=== PATIENT | male | born 1990 | race Caucasian/White ===

== ENCOUNTER 2020-03-21 12:01 | Emergency (ER) | payer OTHER, SELFPAY ==
--- NOTE | ~2020-03-21 | XR_ITS ---
XR abdomen/kub 1V DATE: 03/21/2020 13:49 INDICATION: Low back pain. Hematuria. TECHNIQUE: AP projection, 2 views COMPARISON: None FINDINGS: There is a very prominent amount of fecal material within the colon, especially the sigmoid and right colon. There are gas distended small bowel segments overlying the mid abdomen. The psoas shadows are intact. No visceromegaly or significant abnormal calcification is detected. Included skeletal structures are unremarkable. IMPRESSION: Very prominent amount of fecal material within the colon Multiple gas distended small bowel segments, possibly secondary to adynamic ileus, less likely obstru ction Reviewed, dictated and finalized at [facility] Reviewed, dictated and finalized at [facility] IMPRESSION: Very prominent amount of fecal material within the colon Multiple gas distended small bowel segments, possibly secondary to adynamic ile us, less likely obstruction
--- NOTE | 2020-03-21 12:04 | ED.GENADULT ---
HPI - General Adult General Chief complaint: Fever Stated complaint: Kidney Pain, Fever Time Seen by Provider: 03/21/20 12:04 Source: patient Mode of arrival: ambulatory Limitations: no limitations History of Present Illness HPI narrative: 29-year-old male patient presents to the [facility] with complaints of a fever, body aches and a sore throat that started yesterday. Patient denies taking anything for his symptoms since they have started. Patient states he also has had some low back pain feels like his kidneys are painful. Patient states he did have a little bit of burning with urination this morning when he urinated. Patient denies any nausea, vomiting or diarrhea. Patient denies getting a flu shot this year. Denies any chest pain, shortness of breath or coughing. Related Data Allergies Allergy/AdvReac Type Severity Reaction Status Date / Time No Known Allergies Allergy Verified 03/21/20 12:02 Review of Systems Review of Systems: Narrative: CONSTITUTIONAL: Positive fever, body aches and chills, or sweats. EYES: Denies visual changes, redness, or discharge. ENT: Denies rhinorrhea, congestion, positive sore throat, denies otalgia. CARDIOVASCULAR: Denies chest pain, palpitations, or edema. RESPIRATORY: Denies cough or dyspnea. GASTROINTESTINAL: Denies abdominal pain, nausea, vomiting, or diarrhea. GENITOURINARY: Denies dysuria or hematuria. SKIN: Denies rash or itching. MUSCULOSKELETAL: Denies back pain, joint pain, or myalgia. NEUROLOGIC: Denies headache, numbness, or weakness. PSYCHIATRIC: Denies anxiety or depression. [facility] Social History Social History (Updated 03/21/20 @ 12:52 by TAMIKA Silva) Smoking status: Current every day smoker Gender identity (if verbalized by the patient): Male Comments At the time of my signature I agree with nursing past medical history, surgical, social, and family history. There is no relevant family history pertinent to the presenting complaint. Exam Narrative: Exam Narrative: GENERAL: ill-appearing, well-nourished, and in no acute distress. HEAD: Normocephalic, atraumatic. EYES: PERRLA and EOMI. ENT: Nares with erythema and edema noted bilaterally, no rhinorrhea or epistaxis. Mucous membranes moist. Posterior pharynx with erythema and 2+ tonsil enlargement. No exudates or lesions present. Bilateral TMs are clear with no erythema or foreign bodies to the canal. NECK: Supple. No lymphadenopathy CHEST: Clear to auscultation. No respiratory distress. Patient able talk in clear complete sentences. HEART: Regular rate and rhythm. No murmur heard. Normal peripheral pulses. ABDOMEN: Soft, nontender, nondistended, normal active bowel sounds. EXTREMITIES: Normal range of motion. No edema. SKIN: Warm, dry, no rash. NEURO: No focal deficits. Alert and oriented x3. Course Reevaluation(s) Reevaluation #1: Reevaluated patient and discussed with him that there was some urine found in his urine dip. Discussed with him that since he is having some back pain along with fevers body aches chills I would like to do a KUB to rule out any kind of kidney stone. I will reassess him once this has resulted. Date: 03/21/20 Time: 13:26 Reevaluation #2: Reevaluated patient's KUB after had resulted. There is concerns due to the impression of the radiologist stating that there was multiple gas distended small bowel segments, possibly secondary to adynamic ileus, less likely obstruction. A call was placed to Dr. Montalvo and spoke with his nurse and relayed a message to him that I was wanting to get his advice if I should send this patient to the ER for further evaluation especially since the patient is febrile and low back pain but no abdominal pain or if I can possibly send the patient home with recommendations of stool softener and possibly a bacteria for UTI. Awaiting to hear back from Dr. Montalvo At this time. Date: 03/21/20 Time: 14:14 Reevaluation #3: Bacon back from Dr. Zeus lunsford as nurse.
[2020-03-21 12:05] VITALS: BP 120/84; PULSE 122; RESP 18; TEMP 38.9; O2SAT 96
[2020-03-21 12:44] VITALS: TEMP 38.9
[2020-03-21] MEDS: ACETAMINOPHEN 500 MG TABLET 1000 MG PO (12:44)
[2020-03-21 13:20] VITALS: TEMP 37.9
[2020-03-21 13:34] VITALS: PULSE 113; RESP 18; TEMP 37.9; O2SAT 99
== END 2020-03-21 14:40 | disposition short-term general hospital (02) ==
PROVIDERS: Emergency Provider Nurse Practitioner Family
DX: Z20.828 Contact with and (suspected) exposure to other viral communicable diseases (principal); R31.9 Hematuria, unspecified; F17.200 Nicotine dependence, unspecified, uncomplicated
CPT/HCPCS: 74018; 81003; 87081; 87086; 87804; 87880; 99213; A9270; G0463

== ENCOUNTER 2022-07-30 11:58 | Emergency (ER) | payer BC, MEDICAID, SELFPAY ==
[2022-07-30 12:09] VITALS: BP 145/89; PULSE 92; RESP 16; TEMP 36; O2SAT 99
--- NOTE | 2022-07-30 12:44 | ED.GENADULT ---
HPI - General Adult General Chief complaint: Urogenital-Male Stated complaint: STD/Cough/Sinus Time Seen by Provider: 07/30/22 12:37 Source: patient Mode of arrival: ambulatory Limitations: no limitations History of Present Illness HPI narrative: Patient presents today complaining of 3 day history of nasal congestion, dry throat, cough. Denies fever, shortness of breath. No history of asthma or COPD. Reports sick contacts at work. Smokes 1 pack per day. He has tried no [id number] treatment prior to arrival. Patient also states he would like to be tested for sexually transmitted infections. Denies any known contacts. He is having no symptoms. Related Data Allergies Allergy/AdvReac Type Severity Reaction Status Date / Time No Known Allergies Allergy Verified 07/30/22 12:28 Review of Systems Review of Systems: CONSTITUTIONAL: Denies body aches, fever, chills, or sweats. EYES: Denies visual changes, redness, or discharge. ENT: Denies rhinorrhea, sore throat, or otalgia.+ congestion, dry throat CARDIOVASCULAR: Denies chest pain, palpitations, or edema. RESPIRATORY: Denies dyspnea.+ cough GASTROINTESTINAL: Denies abdominal pain, nausea, vomiting, or diarrhea. GENITOURINARY: Denies dysuria or hematuria. SKIN: Denies rash, itching, or wounds. MUSCULOSKELETAL: Denies back pain, joint pain, or myalgia. NEUROLOGIC: Denies headache, numbness, tingling, or weakness. PSYCH: Denies depression or anxiety. [facility] Social History Social History Smoking status: Current every day smoker Gender identity (if verbalized by the patient): Male Comments At time of signature, I have reviewed and agree with nursing past medical, surgical, social and family history unless otherwise noted. Please see nursing chart for further information. There is no relevant family history pertinent to the presenting complaint Exam Narrative: GENERAL: Well-appearing, well-nourished, and in no acute distress. HEAD: Normocephalic, atraumatic. EYES: EOMI. No redness or drainage. Conjunctivae normal. ENT: Mucous membranes pink and moist. Nares congested. No rhinorrhea. TMs normal bilaterally. Throat normal. Uvula midline. NECK: Normal AROM. Supple. No lymphadenopathy. CHEST: No respiratory distress. Clear to auscultation. HEART: Regular rate and rhythm. No murmur appreciated. Normal peripheral pulses. : Deferred EXTREMITIES: Normal range of motion. No edema. SKIN: Warm, dry, no rash. Capillary refill normal. Normal skin turgor. NEURO: No focal deficits. Alert and oriented x3. Gait steady. PSYCH: Normal affect. No signs of depression or anxiety. Course Course Level of Care: Express Care Visit Vital Signs Vital signs: Vital Signs Temperature 96.8 F L 07/30/22 12:09 Pulse Rate 92 07/30/22 12:09 Respiratory Rate 16 07/30/22 12:09 Blood Pressure 145/89 H 07/30/22 12:09 Pulse Oximetry 99 07/30/22 12:09 Oxygen Delivery Room Air 07/30/22 12:09 Temperature 96.8 F L 07/30/22 12:09 Pulse Rate 92 07/30/22 12:09 Respiratory Rate 16 07/30/22 12:09 Blood Pressure 145/89 H 07/30/22 12:09 Pulse Oximetry 99 07/30/22 12:09 Oxygen Delivery Room Air 07/30/22 12:09 Reviewed. Pt has been instructed to follow up with his PCP regarding his elevated blood pressure today. Medical Decision Making MDM Narrative Medical decision making narrative: COVID-19 negative. Will test patient for STDs and he would like prophylactic antibiotics. Instructed him to follow up but an STD Clinic or his PCP for further testing due to limitations of our clinic. Prescriptions for doxycycline and Flagyl sent to pharmacy. Patient is also requesting prescription for Flonase. Anticipatory guidance given. Differential Diagnosis Differential Diagnosis: Gonorrhea, chlamydia, Trichomonas, URI, allergic rhinitis Vital Signs Vital Signs: Vital Signs Temperature 96.8 F L
--- NOTE | 2022-07-30 13:03 | PC.NURSE ---
was d/c at [id number], but had to be called back in from parking lot for rocephin injection.
--- NOTE | 2022-07-30 13:17 | PC.NURSE ---
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
--- NOTE | 2022-07-30 13:32 | PC.NURSE ---
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
== END 2022-07-30 12:58 | disposition home or self-care (01) ==
PROVIDERS: Emergency Provider Nurse Practitioner
DX: J06.9 Acute upper respiratory infection, unspecified (principal); Z11.3 Encounter for screening for infections with a predominantly sexual mode of transmission; Z20.822 Contact with and (suspected) exposure to COVID-19; F17.200 Nicotine dependence, unspecified, uncomplicated
CPT/HCPCS: 87426; 87491; 87591; 87661; 99213; C9803; G0463